=== PATIENT | female | born 1940 | race Caucasian/White ===

== ENCOUNTER 2017-01-05 06:58 | Day surgery (SDC) | payer MEDICARE, BC ==
[2017-01-05] MEDS ORDERED: Sodium Chloride 0.9% 10 ML Syringe FLUSH PRN (07:00)
[2017-01-05] MEDS ORDERED: Lactated Ringers 1,000 ML IV SCH (07:00)
[2017-01-05] MEDS ORDERED: Lidocaine 2% 100 MG/5 ML Syringe IVPUSH ONE (08:30)
[2017-01-05] MEDS ORDERED: Propofol 200 MG/20 ML SDV IV ONE (08:30)
--- NOTE | 2017-01-05 08:57 | PCM.OPNOTE ---
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 hiatal hernia Anesthesia Technique: MAC Primary Surgeon: Isaías Hassan Anesthesia Provider: Woody Gunn Pathology: distal esophagus Complications: None Condition: Good Free Text/Narrative:: see dictation
[2017-01-05 10:27] VITALS: BP 145/82
--- NOTE | 2017-01-05 14:03 | OR ---
DATE OF OPERATION: 01/05/2017 SURGEON: Isaías Hassan MD PROCEDURE PERFORMED: EGD with cold forceps biopsy. PREOPERATIVE DIAGNOSIS: History of Agosto's esophagus with ulceration. POSTOPERATIVE DIAGNOSIS: Agosto's and hiatal hernia. INDICATIONS FOR PROCEDURE: This is a 76-year-old white female who, last year on EGD, was noted to have some Agosto's, but she also had some ulceration in the area. I recommended a followup scope in one year after treatment to ensure stability. In addition, there was no evidence of dysplasia on her last EGD. DESCRIPTION OF PROCEDURE: After an excellent IV sedation was administered, the bite block was inserted. The flexible endoscope was passed without difficulty down the patient's esophagus and into the stomach. The stomach was insufflated. Scope was passed through the pylorus to the second portion of the duodenum and slowly withdrawn. The following findings were noted. Duodenum unremarkable. Stomach, hiatal hernia. GE junction measured at 35 cm. The distal esophagus had several tongues of what appeared to be intestinal metaplasia consistent with Agosto's, and these were extensively biopsied and submitted in 1 container. The remainder of the esophageal exam was unremarkable. The stomach was deflated and scope was removed. The patient tolerated the procedure well and was taken to recovery room in good condition. /[id number] /JOSHUAL
== END 2017-01-05 10:05 | disposition home or self-care (01) ==
LOC: FB.SDS 06:58
PROVIDERS: ATTEND Surgery
DX: K29.50 Unspecified chronic gastritis without bleeding (principal); K20.9 Esophagitis, unspecified; K44.9 Diaphragmatic hernia without obstruction or gangrene; K22.70 Barrett's esophagus without dysplasia; Z79.899 Other long term (current) drug therapy; Z79.82 Long term (current) use of aspirin; I10 Essential (primary) hypertension; Z98.41 Cataract extraction status, right eye; Z90.49 Acquired absence of other specified parts of digestive tract; Z98.890 Other specified postprocedural states; Z82.49 Family history of ischemic heart disease and other diseases of the circulatory system
CPT/HCPCS: 00740; 43239; 88305; 88313; J2704; J7120

== ENCOUNTER 2017-06-19 07:12 | Day surgery (SDC) | payer MEDICARE, BC ==
[2017-06-19] MEDS ORDERED: Sodium Chloride 0.9% 10 ML Syringe FLUSH PRN (07:39)
[2017-06-19] MEDS ORDERED: Propofol 200 MG/20 ML SDV IV ONE (09:20)
[2017-06-19 10:47] VITALS: BP 144/79
--- NOTE | 2017-06-19 12:32 | OR ---
DATE OF OPERATION: 06/19/2017 SURGEON: Lenard dAams MD PREOPERATIVE DIAGNOSIS: Cataract left eye. POSTOPERATIVE DIAGNOSIS: Same. OPERATION PERFORMED: Phacoemulsification of cataract left eye with placement of an Campuzano, model ZCB00, 17.5 diopter, foldable, posterior chamber intraocular lens. FOREIGN BROADCAST SPECIALIST: None. DESCRIPTION OF PROCEDURE: Peribulbar anesthetic was performed using a mixture of 2% lidocaine with Wydase. The patient was prepped and draped in the usual fashion. A 3 mm fornix based conjunctival flap was performed at the 10 o'clock position. Hemostasis was obtained using diathermy, and a 2.8 mm grooved near clear corneal incision was then made. A stab incision was made into the anterior chamber at the 12 o'clock position and a second stab wound incision was made underlying the grooved near clear corneal incision. Viscoat was instilled into the anterior chamber, and a continuous tear capsulotomy was performed. Hydrodissection was accomplished with balanced salt solution, and the nucleus was removed in a divide and conquer fashion. The remaining cortical material was removed with the irrigation and aspiration unit. Viscoat was instilled into the anterior chamber, and an Campuzano, model ZCB00, 17.5 diopter, foldable, posterior chamber intraocular lens was placed into the capsular bag, the haptics being positioned at the 1 and 7 o'clock positions. The residual Viscoat was removed from the anterior chamber and the anterior chamber reformed with balanced salt solution. The wound was checked and noted to be watertight. The conjunctiva was secured in its original position with diathermy. Alphagan and Maxitrol Ointment were then placed into the patient's eye. The patient tolerated the procedure well and it was without complication. Elapsed phacoemulsification time was 18 seconds. Postoperative instructions as related to activities as well as medications were reviewed with the patient. The patient was instructed to return to see me on the day following surgery for the first postoperative check. The patient was also instructed to contact me prior to that time if the patient were to have any problems. ADDENDUM: Because of the patient's borderline pupillary dilation, 0.3 mL of a mixture of phenylephrine, lidocaine,and balanced salt solution were placed into the anterior chamber. This helped to maintain adequate pupillary dilation throughout the course of her surgery. /[id number] DEG/MODL CC: ZEHRA RODRIGUEZ MD MTDD
== END 2017-06-19 11:01 | disposition home or self-care (01) ==
LOC: FB.SDS 07:12
PROVIDERS: ATTEND Ophthalmology
DX: H26.9 Unspecified cataract (principal); I10 Essential (primary) hypertension; Z79.82 Long term (current) use of aspirin; Z79.899 Other long term (current) drug therapy; Z90.49 Acquired absence of other specified parts of digestive tract; Z98.890 Other specified postprocedural states
CPT/HCPCS: 66984; A4217; C1780; J2704; 00142-QZ

== ENCOUNTER 2019-12-18 10:40 | Emergency (ER) | payer BC, MEDICARE ==
--- NOTE | 2019-12-18 12:26 | EDM.PDOC ---
ED HPI GENERAL MEDICAL PROBLEM - General Chief Complaint: Respiratory Problem Stated Complaint: SOB Time Seen by Provider: 12/18/19 10:55 Source of Information: Reports: Patient History Limitations: Reports: No Limitations - History of Present Illness INITIAL COMMENTS - FREE TEXT/NARRATIVE: Patient presented to the ED from the clinic because of dyspnea on exertion which started 1 month ago and is progressively geting worse. She normally walk a mile but for the past week just a block and she gets winded. She also c/o ocassional left sided chest pain. there is no cough and cold symptoms, no fever or chills. She has a h/o RLE DVT diagnosed a year ago but didn't complete anticoagulation treatment due to frequent nosebleeds. - Related Data Allergies Allergy/AdvReac Type Severity Reaction Status Date / Time No Known Allergies Allergy Verified 06/19/17 07:33 Home Meds: Home Meds Aspirin 325 mg PO DAILY 09/01/15 [History] Calcium Carbonate/Vitamin D3 [Caltrate 600 Plus D3 Tablet] 1 tab PO DAILY [History] predniSONE 4 mg PO DAILY 09/01/15 [History] Pantoprazole [ProTONIX] 40 mg PO ACBREAKFAST 06/18/17 [History] Lisinopril/Hydrochlorothiazide [Lisinopril-Hctz 10-12.5 mg Tab] 10 - 12.5 mg PO DAILY 12/18/19 [History] Past Medical History HEENT History: Reports: Cataract, Impaired Vision Cardiovascular History: Reports: None Respiratory History: Reports: None Gastrointestinal History: Reports: GERD Other Gastrointestinal History: DYSPEPSIA Genitourinary History: Reports: None DOCUMENT CONTROL ASSOCIATE History: Reports: Musculoskeletal History: Reports: Other (See Below) Other Musculoskeletal History: GIANT CELL ARTERITIS Neurological History: Reports: Other (See Below) Other Neuro History: TEMPORAL ARTERITIS Endocrine/Metabolic History: Reports: None Dermatologic History: Reports: None - Infectious Disease History Infectious Disease History: Reports: Chicken Pox, Measles, Mumps - Past Surgical History HEENT Surgical History: Reports: Oral Surgery, Other (See Below) Other HEENT Surgeries/Procedures: PT JUST HAD A TOOTH REMOVED ON SUNDAY OF THIS WEEK. GI Surgical History: Reports: Cholecystectomy, Colonoscopy, EGD Social & Family History - Family History Family Medical History: Noncontributory - Caffeine Use Caffeine Use: Reports: Coffee Other Caffeine Use: THREE CUPS A DAY Caffeine Use Comment: 3 cups daily - Recreational Drug Use Recreational Drug Use: No ED ROS GENERAL - Review of Systems Review Of Systems: See Below Constitutional: Reports: No Symptoms HEENT: Reports: No Symptoms Respiratory: Reports: Shortness of Breath Cardiovascular: Reports: No Symptoms Endocrine: Reports: No Symptoms GI/Abdominal: Reports: No Symptoms : Reports: No Symptoms Musculoskeletal: Reports: No Symptoms Skin: Reports: No Symptoms Neurological: Reports: No Symptoms Psychiatric: Reports: No Symptoms ED EXAM, GENERAL - Physical Exam Exam: See Below Exam Limited By: No Limitations General Appearance: Alert, No Apparent Distress Ears: Normal External Exam, Normal Canal Nose: Normal Inspection, Normal Mucosa Throat/Mouth: Normal Inspection, Normal Lips, Normal Teeth Head: Atraumatic, Normocephalic Neck: Normal Inspection, Supple, Non-Tender Respiratory/Chest: No Respiratory Distress, Crackles Cardiovascular: Normal Peripheral Pulses GI/Abdominal: Normal Bowel Sounds, Soft, No Organomegaly Back Exam: Normal Inspection, Full Range of Motion Extremities: Normal Inspection, Normal Range of Motion, Non-Tender Neurological: Alert, Oriented, CN II-XII Intact, Normal Cognition Psychiatric: Normal Affect, Normal Mood Skin Exam: Warm Course - Vital Signs Text/Narrative:: Labs/EKG/CXR was discussed with patient and verbalized full understanding Trop-elevated Pro BNP-elevated Heparin Bolus Heparin drip O2 VNC Hydralazine 20 mg IV x1 Case discussed with Dr Vivas Last Recorded V/S: Last Vital Signs Temp 36.5 C 12/18/19 10:55 Pulse 78 12/18/19 10:55 Resp 16 12/18/19 10:55 BP 150/83 H 12/18/19 10:55 Pulse Ox 98 12/18/19 10:55 - Orders/Labs/Meds Orders: Active Orders 24 hr Category Date Time Status EKG Documentation Completion [RC] ASDIRECTED Care 12/18/19 12:15 Active Chest w Cont [CT] Stat Exams 12/18/19 11:30 Ordered VL Duplex Lwr Ext Veins Ltd Rt [US] Stat Exams 12/18/19 Ordered Heparin Sodium/0.45% NaCl [Heparin 25,000 Units in 1/2 Med 12/18/19 12:35 Active NS 500 ML] 500 ml IV ASDIRECTED Sodium Chloride 0.9% [Normal Saline] 1,000 ml Med 12/18/19 12:11 Active IV .BOLUS EKG 12 Lead [EK] Routine Ther 12/18/19 12:15 Ordered Medication Orders Sodium Chloride (Normal Saline) 1,000 mls @ 999 mls/hr IV .BOLUS ONE Stop: 12/18/19 13:11 Last Admin: 12/18/19 12:53 Dose: Not Given Heparin Sodium/Sodium Chloride (Heparin 25,000 Units In 1/2 Ns 500 Ml) 500 mls @ 20 mls/hr IV ASDIRECTED ZOLTAN Last Admin: 12/18/19 13:00 Dose: 20 mls/hr Labs: Laboratory Tests 12/18/19 12/18/19 12/18/19 Range/Units 11:40 11:40 11:40 WBC 6.4 (4.5-12.0) X10-3/uL RBC 5.09 (3.23-5.20) x10(6)uL Hgb 14.6 (11.5-15.5) g/dL Hct 44.7 (30.0-51.3) % MCV 87.9 (80-96) fL MCH 28.8 (27.7-33.6) pg MCHC 32.7 (32.2-35.4) g/dL RDW 13.5 (11.5-15.5) % Plt Count 230 (125-369) X10(3)uL MPV 8.5 (7.4-10.4) fL Neut % (Auto) 76.7 (46-82) % Lymph % (Auto) 16.7 (13-37) % Rhea % (Auto) 5.2 (4-12) % Eos % (Auto) 1 (1.0-5.0) % Baso % (Auto) 1 (0-2) % Neut # (Auto) 4.9 (1.6-8.3) # Lymph # (Auto) 1.1 (0.6-5.0) # Rhea # (Auto) 0.3 (0.0-1.3) # Eos # (Auto) 0.1 (0.0-0.8) # Baso # (Auto) 0.0 (0.0-0.2) # PT 10.8 (9.0-11.1) sec INR 1.00 (1.00-1.24) APTT 25.0 (24.4-33.2) SECONDS D-Dimer, Quantitative 1.79 H (0.0-0.59) mg/LFEU Sodium (135-145) mmol/L Potassium (3.5-5.3) mmol/L Chloride (100-110) mmol/L Carbon Dioxide (21-32) mmol/L BUN (7-18) mg/dL Creatinine (0.55-1.02) mg/dL Est Cr Clr Drug Dosing mL/min Estimated GFR (MDRD) (>60) BUN/Creatinine Ratio (9-20) Glucose (80-116) mg/dL Calcium (8.6-10.2) mg/dL Total Bilirubin (0.1-1.3) mg/dL AST (5-25) IU/L ALT (12-36) U/L Alkaline Phosphatase (56-112) IU/L Troponin I 249.5 H* (4.0-60.3) pg/mL NT-Pro-B Natriuret Pep 3015 H* (<=450) pg/mL Total Protein (6.0-8.0) g/dL Albumin (3.2-4.6) g/dL Globulin g/dL Albumin/Globulin Ratio 12/17/ Range/Units 11:40 WBC (4.5-12.0) X10-3/uL RBC (3.23-5.20) x10(6)uL Hgb (11.5-15.5) g/dL Hct (30.0-51.3) % MCV (80-96) fL MCH (27.7-33.6) pg MCHC (32.2-35.4) g/dL RDW (11.5-15.5) % Plt Count (125-369) X10(3)uL MPV (7.4-10.4) fL Neut % (Auto) (46-82) % Lymph % (Auto) (13-37) % Rhea % (Auto) (4-12) % Eos % (Auto) (1.0-5.0) % Baso % (Auto) (0-2) % Neut # (Auto) (1.6-8.3) # Lymph # (Auto) (0.6-5.0) # Rhea # (Auto) (0.0-1.3) # Eos # (Auto) (0.0-0.8) # Baso # (Auto) (0.0-0.2) # PT (9.0-11.1) sec INR (1.00-1.24) APTT (24.4-33.2) SECONDS D-Dimer, Quantitative (0.0-0.59) mg/LFEU Sodium 143 (135-145) mmol/L Potassium 4.3 (3.5-5.3) mmol/L Chloride 104 (100-110) mmol/L Carbon Dioxide 31 (21-32) mmol/L BUN 19 H (7-18) mg/dL Creatinine 1.3 H (0.55-1.02) mg/dL Est Cr Clr Drug Dosing 30.54 mL/min Estimated GFR (MDRD) 39 L (>60) BUN/Creatinine Ratio 14.6 (9-20) Glucose 102 (80-116) mg/dL Calcium 9.5 (8.6-10.2) mg/dL Total Bilirubin 0.6 (0.1-1.3) mg/dL AST 34 H (5-25) IU/L ALT 22 (12-36) U/L Alkaline Phosphatase 80 (56-112) IU/L Troponin I (4.0-60.3) pg/mL NT-Pro-B Natriuret Pep (<=450) pg/mL Total Protein 7.6 (6.0-8.0) g/dL Albumin 3.4 (3.2-4.6) g/dL Globulin 4.2 g/dL Albumin/Globulin Ratio 0.8 Meds: Medications Generic Name Dose Route Start Last Admin Trade Name Freq PRN Reason Stop Dose Admin Sodium Chloride 1,000 mls @ 999 mls/hr 12/18/19 12:11 12/18/19 12:53 Normal Saline IV 12/18/19 13:11 Not Given .BOLUS ONE Heparin Sodium/Sodium Chloride 500 mls @ 20 mls/hr 12/18/19 12:35 12/18/19 13 :00 Heparin 25,000 Units In 1/2 Ns 500 Ml IV 20 mls/hr ASDIRECTED ZOLTAN Administration Discontinued Medications Generic Name Dose Route Start Last Admin Trade Name Freq PRN Reason Stop Dose Admin Heparin Sodium (Porcine) 5,000 units 12/18/19 12:34 12/18/19 13:00 Heparin Sodium IVPUSH 12/18/19 12:35 5,000 units ONETIME ONE Administration Hydralazine HCl 20 mg 12/18/19 13:07 12/18/19 13:10 Apresoline IVPUSH 12/18/19 13:08 20 mg ONETIME ONE Administration Departure - Departure Time of Disposition: 12:25 Disposition: DC/Tfer to Acute Hospital 02 Condition: Good Clinical Impression: CHF (congestive heart failure), Acute [place] - Discharge Information Referrals: Kirill Hatch MD [Primary Care Provider] - Forms: ED Department Discharge Sepsis Event Note - Evaluation Sepsis Screening Result: No Definite Risk - Focused Exam Vital Signs: Vital Signs Temp Pulse Resp BP Pulse Ox 12/18/19 10:55 36.5 C 78 16 150/83 H 98 Date Exam was Performed: 12/18/19 Time Exam was Performed: 13:10 - My Orders Last 24 Hours: My Active Orders 12/18/19 VL Duplex Lwr Ext Veins Ltd Rt [US] Stat 12/18/19 11:30 Chest w Cont [CT] Stat 12/18/19 12:11 Sodium Chloride 0.9% [Normal Saline] 1,000 ml IV .BOLUS 12/18/19 12:15 EKG Documentation Completion [RC] ASDIRECTED EKG 12 Lead [EK] Routine 12/18/19 12:35 Heparin Sodium/0.45% NaCl [Heparin 25,000 Units in 1/2 NS 500 ML] 500 ml IV ASDIRECTED - Assessment/Plan Last 24 Hours: My Active Orders 12/18/19 VL Duplex Lwr Ext Veins Ltd Rt [US] Stat 12/18/19 11:30 Chest w Cont [CT] Stat 12/18/19 12:11 Sodium Chloride 0.9% [Normal Saline] 1,000 ml IV .BOLUS 12/18/19 12:15 EKG Documentation Completion [RC] ASDIRECTED EKG 12 Lead [EK] Routine 12/18/19 12:35 Heparin Sodium/0.45% NaCl [Heparin 25,000 Units in 1/2 NS 500 ML] 500 ml IV ASDIRECTED
[2019-12-18] MEDS: Sodium Chloride 0.9% 1,000 ML IV ONE (12:53)
[2019-12-18] MEDS: Heparin Sodium/0.45% NaCl 500 ML IV SCH (13:00)
[2019-12-18] MEDS: Heparin Sodium 5,000 Units/ML Vial IVPUSH ONE (13:00)
[2019-12-18] MEDS: hydrALAZINE 20 MG/ML SDV IVPUSH ONE (13:10)
[2019-12-18 15:05] VITALS: BP 142/66; PULSE 102
== END 2019-12-18 14:00 ==
LOC: FB.ED 10:40
DX: I50.9 Heart failure, unspecified (principal); I21.9 Acute myocardial infarction, unspecified; K21.9 Gastro-esophageal reflux disease without esophagitis; Z79.82 Long term (current) use of aspirin; Z79.899 Other long term (current) drug therapy
CPT/HCPCS: 36415; 80053; 83880; 84484; 85025; 85379; 85610; 85730; 93005; 96365; 96375; 99285; J0360; J1644

== ENCOUNTER 2021-10-12 06:48 | Day surgery (SDC) | payer MEDICARE ==
[~2021-10-12 06:48] MED LIST: Lactated Ringers 1,000 ML IV SCH; Sodium Chloride 0.9% 10 ML Syringe FLUSH PRN
[2021-10-12] MEDS ORDERED: Propofol 200 MG/20 ML SDV IV ONE (06:49)
[2021-10-12 09:57] VITALS: BP 130/67; PULSE 55
== END 2021-10-12 09:35 | disposition home or self-care (01) ==
LOC: FB.SDS 06:48
PROVIDERS: ATTEND Surgery
DX: K22.70 Barrett's esophagus without dysplasia (principal); K29.60 Other gastritis without bleeding; K44.9 Diaphragmatic hernia without obstruction or gangrene; K20.90 Esophagitis, unspecified without bleeding; Z98.84 Bariatric surgery status; Z79.899 Other long term (current) drug therapy; Z79.82 Long term (current) use of aspirin; Z90.49 Acquired absence of other specified parts of digestive tract; Z98.890 Other specified postprocedural states
CPT/HCPCS: 00731-QZ; 88305; 88313; 88342; J2704; J7120

== ENCOUNTER 2022-01-20 17:13 | Emergency (ER) | payer MEDICARE ==
[2022-01-20] MEDS ORDERED: Sodium Chloride 0.9% 10 ML Syringe FLUSH PRN (17:59)
[2022-01-20] MEDS ORDERED: Iopamidol 755 Mg/ML 75 ML Bottle IV ONE (18:05)
[2022-01-20 18:32] VITALS: BP 151/90; PULSE 63
== END 2022-01-20 19:35 | disposition home or self-care (01) ==
LOC: FB.ED 17:13
DX: R06.02 Shortness of breath (principal); R42 Dizziness and giddiness; K21.9 Gastro-esophageal reflux disease without esophagitis; Z79.82 Long term (current) use of aspirin; Z79.899 Other long term (current) drug therapy
CPT/HCPCS: 36415; 71275; 84484; 85379; 99284-25; Q9967

== ENCOUNTER 2024-03-19 07:01 | Day surgery (SDC) | payer MEDICARE ==
[2024-03-19] MEDS ORDERED: Lidocaine 2% 100 MG/5 ML Syringe IVPUSH ONE (07:02)
[2024-03-19] MEDS ORDERED: Propofol 200 MG/20 ML SDV IV ONE (07:02)
[2024-03-19] MEDS ORDERED: Sodium Chloride 0.9% 10 ML Syringe FLUSH PRN (07:45)
[2024-03-19] MEDS: Lactated Ringers 1,000 ML IV SCH (07:50)
[2024-03-19 09:56] VITALS: BP 149/72; PULSE 56
== END 2024-03-19 09:50 | disposition home or self-care (01) ==
LOC: FB.SDS 07:01
PROVIDERS: ATTEND Surgery
DX: K22.70 Barrett's esophagus without dysplasia (principal); K21.00 Gastro-esophageal reflux disease with esophagitis, without bleeding; K44.9 Diaphragmatic hernia without obstruction or gangrene; I11.0 Hypertensive heart disease with heart failure; I50.9 Heart failure, unspecified; Z79.82 Long term (current) use of aspirin; Z79.899 Other long term (current) drug therapy
CPT/HCPCS: 00731; 88305; 88325; 99100; J2704; J7120